=== PATIENT | male | born 1985 | race Caucasian/White ===

== ENCOUNTER 2018-02-15 08:26 | Day surgery (SDC) | payer BC ==
[2018-02-15] MEDS: NS 1,000 ML IV (07:30)
[~2018-02-15 08:26] MED LIST: LIDOCAINE 2% INJ 100 MG/5 ML SDV (FOR ANES.) As Ordered; PROPOFOL 200 MG/20 ML VIAL As Ordered
== END 2018-02-15 10:47 | disposition home or self-care (01) ==
LOC: M OPP 08:26
DX: K22.8 Other specified diseases of esophagus (principal); K21.9 Gastro-esophageal reflux disease without esophagitis; Z79.899 Other long term (current) drug therapy; Z98.890 Other specified postprocedural states; Z87.19 Personal history of other diseases of the digestive system
CPT/HCPCS: 43239